=== PATIENT | male | born 1965 | race Hispanic/Latino ===

== ENCOUNTER 2016-11-02 17:54 | Observation (INO) | payer OTHER ==
--- NOTE | 2016-11-02 18:21 | C.PDOC ---
History Of Present Illness <Leobardo Lopez - Last Filed: 11/03/16 14:28> <Behzad Chilel - Last Filed: 11/03/16 17:23> 50M BIBA and police for "strange behavior." per ems the pt was talking to himself on the way here. the pt denies any complaints. he says " I don't know why I'm here. I haven't eaten in two days and I just want something to eat." he denies any pmh, meds, allergies, etoh use or drug use. he is not forthcoming with any more history. (Behzad Chilel) <Leobardo Lopez - Last Filed: 11/03/16 14:28> <Behzad Chilel - Last Filed: 11/03/16 17:23> Time Seen by Provider: 11/02/16 17:56 Chief Complaint (Nursing): Psychiatric Evaluation Past Medical History Family History: States: Unknown Family Hx - Social History Hx Alcohol Use: No Hx Substance Use: No <Behzad Chilel - Last Filed: 11/03/16 17:23> Vital Signs: Last Vital Signs Temp 98 F 11/03/16 07:17 Pulse 71 11/03/16 07:17 Resp 18 11/03/16 07:17 BP 123/75 11/03/16 07:17 Pulse Ox 98 11/03/16 17:23 Review Of Systems Except As Marked, All Systems Reviewed And Found Negative. Constitutional: Negative for: Fever Eyes: Negative for: Vision Change ENT: Negative for: Nose Congestion Cardiovascular: Negative for: Chest Pain Respiratory: Negative for: Cough, Shortness of Breath Gastrointestinal: Negative for: Nausea, Vomiting, Abdominal Pain, Diarrhea Genitourinary: Negative for: Dysuria Musculoskeletal: Negative for: Neck Pain Neurological: Negative for: Weakness, Numbness, Headache Psych: Negative for: Depression, Suicidal ideation <Behzad Chilel - Last Filed: 11/03/16 17:23> Physical Exam - Physical Exam Appears: No Acute Distress Skin: Warm, Dry Head: Atraumatic Eye(s): bilateral: PERRL Nose: No Epistaxis Oral Mucosa: Moist Lips: No Swelling Neck: Normal ROM Cardiovascular: Rhythm Regular Respiratory: No Decreased Breath Sounds, No Accessory Muscle Use Gastrointestinal/Abdominal: Soft Neurological/Psych: Oriented x3, Other (no focal deficits. ) <Behzad Chilel - Last Filed: 11/03/16 17:23> ED Course And Treatment - Laboratory Results Result Diagrams: 11/02/16 18:27 11/02/16 18:27 <Leobardo Lopez - Last Filed: 11/03/16 14:28> - Laboratory Results Result Diagrams: 11/02/16 18:27 11/02/16 18:27 O2 Sat by Pulse Oximetry: 98 (RA) Pulse Ox Interpretation: Normal <Behzad Chilel - Last Filed: 11/03/16 17:23> Medical Decision Making <Leobardo Lopez - Last Filed: 11/03/16 14:28> <Behzad Chilel - Last Filed: 11/03/16 17:23> Medical Decision Making: pt endorse to [place] pending repeat assessment by dr lee. pt now reeval, recommend repeat eval by [facility] 230: pt accepted to [facility] (Leobardo Lopez) EKG: NSR 82 bpm Normal axis. No acute ischemia Chest XR: no acute findings per crisis the pt requires a [facility] screen (Behzad Chilel) Disposition <Leobardo Lopez - Last Filed: 11/03/16 14:28> - Disposition Disposition Time: 01:00 <Behzad Chilel - Last Filed: 11/03/16 17:23> - Disposition Condition: STABLE - Clinical Impression Clinical Impression: Bizarre behavior Physician Patient Turnover Patient Signed Over To: Dmitry Oneal Handoff Comments: f/u psych recs <Behzad Chilel - Last Filed: 11/03/16 17:23>
[2016-11-02 18:28] LABS: URINE BILIRUBIN NEGATIVE (NEGATIVE); URINE BLOOD NEGATIVE (NEGATIVE); URINE COLOR Yellow (YELLOW); URINE GLUCOSE (UA) NORMAL (Normal); URINE KETONE NEGATIVE (NEGATIVE); URINE LEUKOCYTE ESTERASE NEG Leu/uL (Negative); URINE PROTEIN NEGATIVE (NEGATIVE); URINE UROBILINOGEN NORMAL mg/dL (0.2-1.0); WBC URINE 1 /hpf (0-5)
[2016-11-02 18:30] LABS: BASO # 0.1 K/uL (0.0-0.2); BASO % 0.6 % (0.0-2.0); EOS # 0.2 K/uL (0.0-0.7); EOS % 1.9 % (0.0-4.0); HEMATOCRIT 44.6 % (35.0-51.0); LYMPH # 3.4 K/uL (1.0-4.3); LYMPH % 35.2 % (20.0-40.0); MEAN CELL VOLUME 93.3 fL (80.0-94.0); MEAN CORPUSCULAR HEMOGLOBIN 31.2 pg (27.0-31.0); MEAN CORPUSCULAR HGB CONC 33.4 g/dL (33.0-37.0); MEAN PLATELET VOLUME 8.8 fL (7.2-11.7); MONO # 0.8 K/uL (0.0-0.8); MONO % 8.4 % (0.0-10.0); RED CELL DISTRIBUTION WIDTH 13.4 % (11.5-14.5); WHITE BLOOD COUNT 9.7 K/uL (4.8-10.8)
[2016-11-02 18:39] LABS: CHLORIDE 99 mmol/L (98-107); POTASSIUM 3.9 mmol/L (3.6-5.2); SODIUM 136 mmol/L (132-148)
[2016-11-02 18:42] LABS: ALB/GLOB RATIO 1.1 (1.0-2.1); ALKALINE PHOSPHATASE 67 U/L (38-126); ALT/SGPT 34 U/L (21-72); AST/SGOT 22 U/L (17-59); BILIRUBIN,TOTAL 0.4 mg/dL (0.2-1.3); BLOOD UREA NITROGEN 13 mg/dL (9-20); CALCIUM 8.8 mg/dl (8.6-10.4); CARBON DIOXIDE 24 mmol/L (22-30); GFR AFRICAN-AMERICAN > 60; GLUCOSE,RANDOM 193 mg/dL (75-110); TOTAL PROTEIN 7.3 g/dL (6.3-8.3)
[2016-11-02 18:43] LABS: ALCOHOL SERUM < 10 mg/dl (0-10)
[2016-11-03 07:18] VITALS: RESP 18
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
--- NOTE | 2016-11-03 09:02 | RAD ---
HISTORY: Psychiatric evaluation COMPARISON: No prior. FINDINGS: LUNGS: No active pulmonary disease. PLEURA: No significant pleural effusion identified, no pneumothorax apparent. CARDIOVASCULAR: Normal. OSSEOUS STRUCTURES: Mild cortical productive change and or subchondral cyst formation at the left proximal humerus. Correlation with shoulder x-ray may be helpful if clinically indicated. VISUALIZED UPPER ABDOMEN: Normal. OTHER FINDINGS: None. IMPRESSION: No active disease. Mild cortical productive change and or subchondral cyst formation at the left proximal humerus. Correlation with shoulder x-ray may be helpful if clinically indicated.
--- NOTE | 2016-11-03 16:28 | CARD ---
APPROVED REPORT EKG Measurement Heart [id number] <Conclusion> Normal sinus rhythm Cannot rule out Anterior infarct, age undetermined Abnormal ECG
[2016-11-04 02:18] VITALS: TEMP 98.6
[2016-11-04 04:51] VITALS: PULSE 58; O2SAT 98
[2016-11-04 04:58] VITALS: BP 100/60
== END 2016-11-04 05:24 | disposition short-term general hospital (02) ==
LOC: C.ER 17:54 → C.9OBSV 11-03 02:48
PROVIDERS: ADMIT Emergency Medicine; ATTEND Emergency Medicine
DX: F20.9 Schizophrenia, unspecified (principal)
CPT/HCPCS: 71010; 80053; 81001; 82948; 85025; 93005; 99285; G0378 ×2; G0480 ×11